=== PATIENT | male | born 1960 | race Caucasian/White ===

== ENCOUNTER 2018-06-29 02:05 | Emergency (ER) | payer OTHER ==
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
--- NOTE | 2018-06-29 02:55 | PDOC ---
History of Present Illness - General Chief Complaint: Psychiatric Stated Complaint: ANXIETY Time Seen by Provider: 06/29/18 02:31 - History of Present Illness Initial Comments: 06/29/18 02:54 57 yo M with h/o HTN who p/w grief reaction. Patient reports ongoing nervousness , sadness, difficulty sleeping, guilt, difficulty concentrating, rapid heart rate, and rapid heart rate. Symptom onset with social stressors. Triggers include conversation with coworkers, family about his 's recent . Denies SI. HI, self harm or injurious behavior, hallucinations. Patient recently presented to PMD Dr. Henderson who prescribed Sertraline, which patient has not yet taken. States that he does not want chronic management, but acute medication for periods of symptoms. 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 Patient denies VELÁSQUEZ, vision change, hearing loss, palpitations, N/V, F,C, CP, SOB , urinary complaints, abdominal pain, hematuria, BPR, diarrhea, constipation, lightheadedness, weakness, sensory changes. PMHx: as noted above ROS: as noted SHx: Denies Etoh, IVDA Allergies: NKDA Past History - Past Medical History Allergies/Adverse Reactions: Allergies Allergy/AdvReac Type Severity Reaction Status Date / Time No Known Allergies Allergy Verified 06/29/18 02:56 Home Medications: Ambulatory Orders Losartan 50Mg/Hctz 12.5MG [Hyzaar -] 1 tab PO DAILY 11/14/12 [place]-3 Acid Ethyl Esters [Lovaza -] 1 cap PO DAILY 08/24/13 Alprazolam [Xanax] 0.5 mg PO HS #7 tablet MDD 1 06/29/18 Alprazolam [Xanax] 0.5 mg PO PRN PRN #7 tablet MDD 1 tab 06/29/18 HTN: Yes Hypercholesterolemia: Yes - Suicide/Smoking/Psychosocial Hx Smoking Status: No Smoking History: Current some day smoker Number of Cigarettes Smoked Daily: 0 Cigars Per Day: 1 Hx Alcohol Use: No Substance Use Type: None Review of Systems - Review of Systems Comments:: 06/29/18 02:55 GENERAL/CONSTITUTIONAL: No fever or chills. No weakness. HEAD, EYES, EARS, NOSE AND THROAT: No change in vision. No ear pain or discharge. No sore throat. CARDIOVASCULAR: No chest pain or shortness of breath RESPIRATORY: No cough, wheezing, or hemoptysis. GASTROINTESTINAL: No nausea, vomiting, diarrhea or constipation. GENITOURINARY: No dysuria, frequency, or change in urination. MUSCULOSKELETAL: No joint or muscle swelling or pain. No neck or back pain. SKIN: No rash NEUROLOGIC: No headache, vertigo, loss of consciousness, or change in strength/ sensation. ENDOCRINE: No increased thirst. No abnormal weight change HEMATOLOGIC/LYMPHATIC: No anemia, easy bleeding, or history of blood clots. ALLERGIC/IMMUNOLOGIC: No hives or skin allergy. *Physical Exam - Physical Exam Comments: 06/29/18 02:55 GENERAL: Awake, alert, and fully oriented, in no acute distress HEAD: No signs of trauma, normocephalic, atraumatic EYES: PERRLA, EOMI, sclera anicteric, conjunctiva clear ENT: Auricles normal inspection, hearing grossly normal, nares patent, oropharynx clear without exudates. Moist mucosa NECK: Normal ROM, supple, no lymphadenopathy, JVD, or masses LUNGS: No distress, speaks full sentences, clear to auscultation bilaterally HEART: Regular rate and rhythm, normal S1 and S2, no murmurs, rubs or gallops, peripheral pulses normal and equal bilaterally. EXTREMITIES : Normal inspection, Normal range of motion, no edema. No clubbing or cyanosis. NEUROLOGICAL: Cranial nerves II through XII grossly intact. Normal speech, normal gait, no focal sensorimotor deficits PSYCHIATRY: Patient engaged in conversation with appropriate hygiene, eye contact. Affect appropriate and congruent with mood. SKIN: Warm, Dry, normal turgor, no rashes or lesions noted Medical Decision Making - Medical Decision Making 06/29/18 03:31 57 yo M with h/o HTN who p/w grief reaction. Endorses nervousness, sadness, difficulty sleeping, guilt, rapid heart rate. Vitals wnl, AF, A&Ox3. Denies SI, HI, self harm, hallucinations, elicit drug or alcohol use. Physical exam unremarkable. Advised to f/u with psych. Patient not suicidal risk, and currently no evidence of self harm. Will observe, reassess. ED Course: Patient continues to deny SI, HI. Xanax sent to pharmacy Discussed Xanax use with patient. 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 *DC/Admit/Observation/Transfer Diagnosis at time of Disposition: Brief or acute posttraumatic stress disorder - Discharge Dispostion Disposition: HOME Condition at time of disposition: Stable Decision to Admit order: No - Prescriptions Prescriptions: Alprazolam [Xanax] 0.5 mg PO PRN PRN #7 tablet MDD 1 tab PRN Reason: Insomnia Alprazolam [Xanax] 0.5 mg PO HS #7 tablet MDD 1 - Referrals Referrals: Leroy Bah MD [Primary Care Provider] - - Patient Instructions Printed Discharge Instructions: DI for Insomnia Additional Instructions: Please return to the emergency department with any new or worsening symptoms or concerns. Please follow up with your primary care physician within 72 hours. Please return to the emergency department. Please refrain from taking Xanax while operating heavy machinery. Take xanax as prescribed at night. Return to emergency department if you experience any suicidal ideations, homicidal thoughts, hallucinations. - Post Discharge Activity - Attestations Physician Attestion: 06/29/18 02:56 I attest to the information provided in this note.
[2018-06-29 02:56] VITALS: TEMP 99.3; BMI 31.8
[2018-06-29 03:51] VITALS: BP 146/78; PULSE 90
== END 2018-06-29 03:50 | disposition home or self-care (01) ==
LOC: JER 02:05
DX: F43.10 Post-traumatic stress disorder, unspecified (principal); I10 Essential (primary) hypertension
CPT/HCPCS: 99282-25

== ENCOUNTER 2019-07-09 12:41 | Emergency (ER) | payer OTHER ==
[2019-07-09 13:09] VITALS: BP 130/94; PULSE 94; TEMP 97.9; BMI 32.8
--- NOTE | 2019-07-09 14:03 | PDOC ---
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 Pain started about 1 week ago and is non radiating but is worsening. He also states increased swelling at focal site with erythema and warmth. He denies any wound or drainage and no trauma. He wears a prosthesis that occasionally causes discomfort but denies any abrasions. He called his PCP and was prescribed clinda 300mg TID 2 days ago which he has been taking, but says there has been no improvement. He denies fever, chills, cehst pain, SOB, abd pain, n/v, syncope. Of note, he reports skin irritation to area for the past 2 months prior to onset of current symptoms due to prosthetic which improved on its own; during that time he denied any increased swelling, drainage, fevers. PMHx: as noted above ROS: as noted SHx: occasional cigar use; no alcohol use; no rec drugs Allergies: NKDA ROS: GENERAL/CONSTITUTIONAL: No fever or chills. No weakness. HEAD, EYES, EARS, NOSE AND THROAT: No change in vision. No ear pain or discharge. No sore throat. CARDIOVASCULAR: No chest pain or shortness of breath RESPIRATORY: No cough, wheezing, or hemoptysis. GASTROINTESTINAL: No nausea, vomiting, diarrhea or constipation. GENITOURINARY: No dysuria, frequency, or change in urination. MUSCULOSKELETAL: +leg pain SKIN: +rash NEUROLOGIC: No headache, vertigo, loss of consciousness, or change in strength/ sensation. ENDOCRINE: No increased thirst. No abnormal weight change HEMATOLOGIC/LYMPHATIC: No anemia, easy bleeding, or history of blood clots. ALLERGIC/IMMUNOLOGIC: No hives or skin allergy. PE: GENERAL: Awake, alert, and fully oriented, no acute distress HEAD: No signs of trauma, normocephalic, atraumatic EYES: EOMI, sclera anicteric, conjunctiva clear ENT: Auricles normal inspection, hearing grossly normal, nares patent, oropharynx clear without exudates. Moist mucosa NECK: Normal ROM, no lymphadenopathy LUNGS: No increased work of breathing, symmetrical chest rise, clear to auscultation bilaterally, no wheezes, crackles or rhonchi HEART: Regular rate, regular rhythm, normal S1 and S2, no murmur, peripheral pulses 2+ and equal bilaterally. ABDOMEN: Soft, nondistended, nontender, normoactive bowel sounds. No guarding, no rebound. No masses. No CVAT MUSCULOSKELETAL: Right BKA with FROM NEUROLOGICAL: Cranial nerves II through XII grossly intact. Normal speech, normal gait, no focal sensorimotor deficits SKIN: Right LE inferomedial to knee with 3x3cm area of swelling, erythema, and ttp, nonindurated and no fluctuance, warmth to palpation <Rogelio Holman - Last Filed: 07/09/19 15:15> <Elmira Corral - Last Filed: 07/09/19 15:59> - General Chief Complaint: Redness To Affected Area Stated Complaint: RT FOOT WOUND Time Seen by Provider: 07/09/19 13:10 Past History - Past Medical History COPD: No HTN: Yes Hypercholesterolemia: Yes - Immunization History Immunization Up to Date: Yes - Psycho Social/Smoking Cessation Hx Smoking Status: No Smoking History: Unknown if ever smoked Have you smoked in the past 12 months: No Number of Cigarettes Smoked Daily: 0 Cigars Per Day: 1 Hx Alcohol Use: No Drug/Substance Use Hx: No Substance Use Type: None <Rogelio Holman - Last Filed: 07/09/19 15:15> <Elmira Corral - Last Filed: 07/09/19 15:59> - Past Medical History Allergies/Adverse Reactions: Allergies Allergy/AdvReac Type Severity Reaction Status Date / Time No Known Allergies Allergy Verified 07/09/19 12:58 Home Medications: Ambulatory Orders Quinapril HCl [Accupril] 10 mg PO DAILY 07/09/19 *Physical Exam - Vital Signs Last Vital Signs Temp Pulse Resp BP Pulse Ox 97.9 F 94 H 18 130/94 97 07/09/19 13:01 07/09/19 13:01 07/09/19 13:01 07/09/19 13:01 07/09/19 13:01 <Rogelio Holman - Last Filed: 07/09/19 15:15> - Vital Signs Last Vital Signs Temp Pulse Resp BP Pulse Ox 97.9 F 94 H 18 130/94 97 07/09/19 13:01 07/09/19 13:01 07/09/19 13:01 07/09/19 13:01 07/09/19 13:01 <Elmira Corral - Last Filed: 07/09/19 15:59> ED Treatment Course - LABORATORY CBC & Chemistry Diagram: 07/09/19 14:00 07/09/19 14:00 <Rogelio Holman - Last Filed: 07/09/19 15:15> - LABORATORY CBC & Chemistry Diagram: 07/09/19 14:00 07/09/19 14:00 - ADDITIONAL ORDERS Additional order review: Laboratory Results 07/09/19 14:00 Sodium 140 Potassium 4.4 Chloride 107 Carbon Dioxide 25 Anion Gap 7 L BUN 24.5 H Creatinine 1.1 Est GFR (CKD-EPI)AfAm 84.71 Est GFR (CKD-EPI)NonAf 73.09 Random Glucose 130 H Calcium 9.6 Total Bilirubin 0.8 AST 28 ALT 43 Alkaline Phosphatase 93 C-Reactive Protein Cancelled Total Protein 7.6 Albumin 4.2 07/09/19 14:00 RBC 5.74 H MCV 89.7 MCHC 34.6 RDW 13.8 MPV 9.6 Neutrophils % 70.6 D Lymphocytes % 14.1 D Monocytes % 9.6 Eosinophils % 5.0 H Basophils % 0.7 - Medications Given in the ED: ED Medications Discontinued Medications Generic Name Dose Route Start Last Admin Trade Name Freq PRN Reason Stop Dose Admin Dalbavancin 1,500 mg/ Dextrose 500 mls @ 1,000 mls/hr 07/09/19 14:17 14:27 IVPB 07/09/19 14:46 1,000 mls/hr ONCE ONE Administration <Elmira Corral - Last Filed: 07/09/19 15:59> Medical Decision Making - Medical Decision Making 07/09/19 14:03 58 y/o M with hx of HTN and 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 VSS, AF. PE notable for Right LE inferomedial to knee with 3x3cm area of swelling, erythema , and ttp, nonindurated and no fluctuance, warmth to palpation. Likely cellulitis. Will perform bedisde US to r/u abscess. Failed outpatient therapy, will likely need admission for iv abx -cbc, cmp, esr, crp -iv dalvance -bedside US: edematous subQ tissue with cobblestone appearance and small fluid pocket without discernible capsule; not I&D candidate 07/09/19 15:16 labs wnl discussed with patient plan with give one time dose of dalvance and DC home with wound re-check in ER in 2- 3 days with strict return pcxns to present earlier if complications arise patient comfortable with DC; all questions answered <Rogelio Holman - Last Filed: 07/09/19 15:15> Discharge - Discharge Information Problems reviewed: Yes <Rogelio Holman - Last Filed: 07/09/19 15:15> - Admission No <ShaynaElmiraterrance Chaneyangelica - Last Filed: 07/09/19 15:59> - Discharge Information Clinical Impression/Diagnosis: Cellulitis Qualifiers: Site of cellulitis: extremity Site of cellulitis of extremity: lower extremity Laterality: right Qualified Code(s): L03.115 - Cellulitis of right lower limb Condition: Stable Disposition: HOME - Follow up/Referral Referrals: Leroy Bah MD [Primary Care Provider] - - Patient Discharge Instructions Patient Printed Discharge Instructions: DI for Cellulitis -- Adult Additional Instructions: Additional Instructions: Please return to the emergency department with any new or worsening symptoms or concerns including fever, worsening redness, worsening pain, difficulty moving knee, pus or other drainage. you received IV Dalvance here x 1 dose for infection coverage also monitor for spread of infection in the demarcation line we made Please follow up in the ER in 2-3 days for wound recheck to ensure antibiotic efficacy. Please followup with you PCP Dr Bah in 3-5 days following wound recheck in the ER You may take motrin and tylenol for pain control - Post Discharge Activity Work/Back to School Note: Back to Work
[2019-07-09] MEDS ORDERED: DALBAVANCIN HCL 1,500 MG in DEXTROSE 5%-WATER - 500 ML IVPB ONE (14:17)
[2019-07-09 14:18] LABS: BASO % 0.7 % (0-2.0); HEMATOCRIT 51.5 % (35.4-49); HEMOGLOBIN 17.8 GM/dL (11.7-16.9); LYMPH % 14.1 % (8-40); MCHC 34.6 g/dl (32.0-35.9); MEAN CELL VOLUME 89.7 fl (80-96); MEAN PLT VOLUME 9.6 fl (7.5-11.1); MONO % 9.6 % (3.8-10.2); NEUT % 70.6 % (42.8-82.8); PLATELET COUNT 210 K/MM3 (134-434); RBC 5.74 M/mm3 (4.00-5.60); RDW 13.8 % (11.9-15.9); WHITE BLOOD COUNT 9.8 K/mm3 (4.0-10.0)
[2019-07-09] MEDS ORDERED: DALBAVANCIN HCL 500 MG VIAL (RESTRICTED TO ID ONLY) IVPB ONE ×2 (14:19→14:21)
[2019-07-09 14:55] LABS: ALBUMIN 4.2 g/dl (3.4-5.0); BILIRUBIN,TOTAL 0.8 mg/dL (0.2-1); BLOOD UREA NITROGEN 24.5 mg/dL (7-18); CALCIUM 9.6 mg/dL (8.5-10.1); CREATININE 1.1 mg/dL (0.55-1.3); POTASSIUM 4.4 mmol/L (3.5-5.1); TOT PROT 7.6 g/dl (6.4-8.2)
--- NOTE | 2019-07-09 14:56 | PDOC ---
Attending Attestation - Resident Resident Name: Rogelio Holman - ED Attending Attestation I have performed the following: I have examined & evaluated the patient, The case was reviewed & discussed with the resident, I agree w/resident's findings & plan - HPI HPI: 07/09/19 14:50 58 yo M with h/o HTN, rt BKA with prosthesis presenting with RLE redness/pain/ swelling to the upper caal x 1 week. he usually wears a prosthesis Clindamycin 300mg TID x 2 days - called in by his PMD Dr Bah, but did not see his pmd, called in his medication. he has been taking without improvement. X 1 week of RLE redness, swelling and tenderness, warmth He denies any wound or drainage and no trauma. He wears a prosthesis that occasionally causes discomfort but denies any abrasions. He denies fever, chills, cehst pain, SOB, abd pain, n/v, syncope. Of note, he reports skin irritation to area for the past 2 months prior to onset of current symptoms due to prosthetic which improved on its own; during that time he denied any increased swelling, drainage, fevers. 07/09/19 14:51 - Physicial Exam PE: 07/09/19 14:50 Agree with the resident's HPI and PE as documented in the electronic medical record. NAD, well appearing, EOMI, PERRL, nl conjunctiva, anicteric; neck supple. lungs clear, RRR, abdomen soft nontender. No rebound, no guarding. Back nontender. POLANCO x4, no focal neuro deficits. No peripheral edema. normal color for ethnicity , WWP. right upper caal anteriorly with 5x5cm circumscribed area of erythema, tenderness, and swelling. no knee tenderness, no swelling ROM intact to flexion and extension. - Medical Decision Making 07/09/19 14:54 Vital Signs Temp Pulse Resp BP Pulse Ox 97.9 F 94 H 18 130/94 97 07/09/19 13:01 07/09/19 13:01 07/09/19 13:01 07/09/19 13:01 07/09/19 13:01 vs reviewed, wnl. no fever nontoxic appearing no h/o renal/hepatic disease, no h/o chronic wounds or diabetes no e/o complications ROM intact, so doubt septic arthritis or joint involvement. soft tissue pocus done, with small area of fluid collection with irregular borders, no drainable abscess, some cobblestoning correlating with cellulitis pt is candidate for Dalvance 1500mg x1 dose here, with 2 week half life and coverage of mrsa/mssa and strep species pt amenable told to return in 2 days for wound recheck, return precautions for worsening infection past the area of demarcation, f/c, purulence, rom limitations. labs and lytes wnl, reassuring. normal lfts/Cr function, no leukcotysis he is well appearing, no septic features Pt to be discharged in stable condition. Patient and family made aware of clinical impression, treatment recommendations and disposition plan, return precautions discussed (including but not limited to new or persistent/worsening symptoms, pain, fevers, or signs of infection, chest pain, respiratory distress , inability to tolerate oral intake, dehydration, syncope, or neurologic changes ). Follow up with PMD as recommended, follow up information provided, take medications as instructed for duration of time. continue with supportive care, avoid triggers and precipitants. All questions answered to patient's satisfaction and expressed understanding and comfort with this. At the time of discharge, the patient is alert, clinically improved, tolerating po and verbalizes understanding of instructions, satisfied with the care received and felt comfortable with the plan. Patient does not suffer from an acute life- threatening medical condition at this time and is safe for outpatient follow- up. 07/09/19 15:58
== END 2019-07-09 15:40 | disposition home or self-care (01) ==
LOC: JER 12:41
PROC: 3E03329 Introduction of Other Anti-infective into Peripheral Vein, Percutaneous Approach (ICD-10-PCS; principal; 2019-07-09)
PROC: BH48ZZZ Ultrasonography of Lower Extremity (ICD-10-PCS; 2019-07-09)
DX: L03.115 Cellulitis of right lower limb (principal); Z89.611 Acquired absence of right leg above knee; I10 Essential (primary) hypertension; E78.00 Pure hypercholesterolemia, unspecified
CPT/HCPCS: 36415; 80053; 85025; 99283-25; J0875

== ENCOUNTER 2019-07-12 13:00 | Emergency (ER) | payer OTHER ==
--- NOTE | 2019-07-12 13:23 | PDOC ---
Rapid Medical Evaluation Time Seen by Provider: 07/12/19 13:06 Medical Evaluation: Allergies Allergy/AdvReac Type Severity Reaction Status Date / Time No Known Allergies Allergy Verified 07/12/19 13:20 07/12/19 13:23 CC: revisit for right stump redness. Treated with Dalvance. PE: erythema present to right stump. Orders: labs Patient will proceed to the ED for further evaluation. 07/12/19 13:24 Discharge Disposition - Diagnosis Cellulitis - Referrals - Patient Instructions - Post Discharge Activity
[2019-07-12 13:38] VITALS: BP 128/88; PULSE 78; TEMP 98.5; BMI 32.8
--- NOTE | 2019-07-12 14:58 | PDOC ---
*Physical Exam - Vital Signs Last Vital Signs Temp Pulse Resp BP Pulse Ox 98.5 F 78 18 128/88 98 07/12/19 13:21 07/12/19 13:21 07/12/19 13:21 07/12/19 13:21 07/12/19 13:21 - Physical Exam 07/12/19 14:58 I the patient was examined by [LUPE Pop] under my direct supervision. I personally evaluated the patient. I concur with the above findings and the plan of care. ED Treatment Course - LABORATORY CBC & Chemistry Diagram: 07/12/19 14:25 07/12/19 14:25 Discharge - Discharge Information Problems reviewed: Yes Clinical Impression/Diagnosis: History of incision and drainage Cellulitis Qualifiers: Site of cellulitis: extremity Site of cellulitis of extremity: lower extremity Laterality: right Qualified Code(s): L03.115 - Cellulitis of right lower limb Condition: Stable Disposition: HOME - Follow up/Referral Referrals: Leroy Bah MD [Primary Care Provider] - - Patient Discharge Instructions Additional Instructions: Keep area clean and dry Ibuprofen 600 mg as needed for pain Return to ED in 2 days for wound check, return sooner if fever, chills, increasing pain and swelling - Post Discharge Activity
[2019-07-12 15:06] LABS: BASO % 0.7 % (0-2.0); EOS % 7.4 % (0-4.5); HEMATOCRIT 49.5 % (35.4-49); HEMOGLOBIN 16.7 GM/dL (11.7-16.9); MCH 30.4 pg (25.7-33.7); MCHC 33.8 g/dl (32.0-35.9); MEAN PLT VOLUME 9.5 fl (7.5-11.1); NEUT % 61.9 % (42.8-82.8); PLATELET COUNT 212 K/MM3 (134-434); RDW 13.5 % (11.9-15.9); WHITE BLOOD COUNT 7.1 K/mm3 (4.0-10.0)
--- NOTE | 2019-07-12 15:17 | PDOC ---
History of Present Illness - General History Source: Patient Exam Limitations: No Limitations - History of Present Illness Initial Comments: 07/12/19 15:14 58-year-old male history of hypertension, right BKA seen at this hospital July 09, treated for right lower extremity cellulitis. Received 1 dose of Dalvance 1500 mg IV, area was demarcated and patient instructed to return to ED for wound check. Prior to July 09 visit patient had taken 2 days of clindamycin scribed by primary care doctor. She reports erythema and swelling to area has worsened, denies fever, chills, nausea, vomiting, chest pain, shortness of breath, trauma or any other complaints. ROS: GENERAL/CONSTITUTIONAL: No fever, chills, weakness, dizziness HEAD, EYES, EARS, NOSE AND THROAT: No changes in vision, No ear pain or discharge, No sore throat CARDIOVASCULAR: No chest pain RESPIRATORY: No shortness of breath or cough GASTROINTESTINAL: No pain, nausea, vomiting, diarrhea or constipation GENITOURINARY: No dysuria MUSCULOSKELETAL: No neck or back pain SKIN: wound check above RLE stump, No rash NEUROLOGIC: No headache, vertigo, loss of consciousness, or loss of sensation PE: GENERAL: well-appearing, NAD HEAD: NCAT EYES: Pupils equal, round and reactive to light, sclera anicteric, conjunctiva clear ENT: pharynx: no erythema, no exudate, uvula midline NECK: supple CHEST: nontender RESP: clear, no w/r/r CARDIO: rrr, no m/g/r ABD: +BS, soft, nontender, non distended BACK: no midline spinal ttp, no CVAT EXTREMITIES: Normal range of motion to right lower extremity stump NEUROLOGICAL: Normal speech, normal gait SKIN: Approximately 5 cm x 5 cm erythematous area with tenderness to palpation and swelling, minimal fluctuance noted, no active drainage Is this a multiple visit Asthma Patient?: No <Tami Pop - Last Filed: 07/12/19 15:40> <Elmira Corral - Last Filed: 07/14/19 08:49> - General Chief Complaint: Wound Stated Complaint: RE VISIT Time Seen by Provider: 07/12/19 13:06 Past History - Past Medical History COPD: No HTN: Yes Hypercholesterolemia: Yes - Immunization History Immunization Up to Date: Yes - Psycho Social/Smoking Cessation Hx Smoking Status: No Smoking History: Current some day smoker Have you smoked in the past 12 months: No Number of Cigarettes Smoked Daily: 0 Cigars Per Day: 1 Information on smoking cessation initiated: Yes Hx Alcohol Use: No Drug/Substance Use Hx: No Substance Use Type: None <Tami Pop - Last Filed: 07/12/19 15:40> <Elmira Corral - Last Filed: 07/14/19 08:49> - Past Medical History Allergies/Adverse Reactions: Allergies Allergy/AdvReac Type Severity Reaction Status Date / Time No Known Allergies Allergy Verified 07/12/19 13:20 Home Medications: Ambulatory Orders Quinapril HCl [Accupril] 10 mg PO DAILY 07/09/19 *Physical Exam - Vital Signs Last Vital Signs Temp Pulse Resp BP Pulse Ox 98.5 F 78 18 128/88 98 07/12/19 13:21 07/12/19 13:21 07/12/19 13:21 07/12/19 13:21 07/12/19 13:21 <Tami Pop - Last Filed: 07/12/19 15:40> - Vital Signs Last Vital Signs Temp Pulse Resp BP Pulse Ox 98.5 F 78 18 128/88 98 07/12/19 13:21 07/12/19 13:21 07/12/19 13:21 07/12/19 13:21 07/12/19 13:21 <Elmira Corral - Last Filed: 07/14/19 08:49> Procedures - Incision and Drainage I&D Site: Right: Leg (RLE stump) Betadine cleansed: Yes Anesthesia: 1% Lidocaine Volume(ml): 2 Blade Size: 11 Attempts: 1 Iodinated Packin/2 in (Approximately 5 cc of serosanguineous drainage expressed) <Tami Pop - Last Filed: 07/12/19 15:40> ED Treatment Course - LABORATORY CBC & Chemistry Diagram: 07/12/19 14:25 07/12/19 14:25 <Tami Pop - Last Filed: 07/12/19 15:40> - LABORATORY CBC & Chemistry Diagram: 07/12/19 14:25 07/12/19 14:25 - ADDITIONAL ORDERS Additional order review: 07/12/19 14:25 RBC 5.50 MCV 90.0 MCHC 33.8 RDW 13.5 MPV 9.5 Neutrophils % 61.9 Lymphocytes % 18.0 D Monocytes % 12.0 H Eosinophils % 7.4 H Basophils % 0.7 <Elmira Corral - Last Filed: 07/14/19 08:49> Medical Decision Making - Medical Decision Making 07/12/19 15:41 58-year-old male with history of hypertension and right BKA treated for cellulitis to right lower extremity stump on July 09. She reports erythema has worsened however denies fever, chills, pain, nausea or any other symptom. Small area of fluctuance, I&D performed, packing and sterile dressing applied Patient received Dalvance 1500 mg IV on July 09 therefore no p.o. antibiotics indicated today Advised patient to return to ED in 2 days for wound check <Tami Pop - Last Filed: 07/12/19 15:40> - Medical Decision Making The patient was seen and evaluated in conjunction with midlevel provider under my direct supervision, ancillary studies were reviewed. I agree with the plan as outlined with LUPE Pop. HPI, workup/dispo as outlined. VS reviewed, wnl. I also evaluated the pt. he was seen several days ago for similar sx, given dose of Dalvance now with more erythema and +fluctuance over the RLE prox caal, no knee involvement with FROM I&d performed with purulence expelled, see procedure note defer further abx, as pt received dalvance and abscess drained, packing placed 2 day wound check up anticipate discharge, pcp followup, return precautions 07/14/19 08:47 <Elmira Corral - Last Filed: 07/14/19 08:49> Discharge - Discharge Information Problems reviewed: Yes - Admission No <Tami Pop - Last Filed: 07/12/19 15:40> <Elmira Corral - Last Filed: 07/14/19 08:49> - Discharge Information Clinical Impression/Diagnosis: History of incision and drainage Cellulitis Qualifiers: Site of cellulitis: extremity Site of cellulitis of extremity: lower extremity Laterality: right Qualified Code(s): L03.115 - Cellulitis of right lower limb Condition: Stable Disposition: HOME - Follow up/Referral Referrals: Leroy Bah MD [Primary Care Provider] - - Patient Discharge Instructions Additional Instructions: Keep area clean and dry Ibuprofen 600 mg as needed for pain Return to ED in 2 days for wound check, return sooner if fever, chills, increasing pain and swelling - Post Discharge Activity
[2019-07-12 15:27] LABS: ALBUMIN 3.9 g/dl (3.4-5.0); BILIRUBIN,TOTAL 0.4 mg/dL (0.2-1); BLOOD UREA NITROGEN 16.4 mg/dL (7-18); CALCIUM 8.8 mg/dL (8.5-10.1); CREATININE 0.9 mg/dL (0.55-1.3); POTASSIUM 4.3 mmol/L (3.5-5.1); TOT PROT 6.7 g/dl (6.4-8.2)
== END 2019-07-12 15:53 | disposition home or self-care (01) ==
LOC: JER 13:00
DX: Z48.01 Encounter for change or removal of surgical wound dressing (principal); F17.210 Nicotine dependence, cigarettes, uncomplicated; I10 Essential (primary) hypertension; E78.00 Pure hypercholesterolemia, unspecified
CPT/HCPCS: 36415; 80053; 85025; 99281-25

== ENCOUNTER 2021-07-21 16:40 | Emergency (ER) | payer OTHER ==
[2021-07-21] MEDS ORDERED: KETOROLAC TROMETHAMINE 30 MG/1 ML VIAL IM ONE (18:18)
[2021-07-21] MEDS ORDERED: predniSONE 20 MG TABLET (UD) PO ONE (18:18)
[2021-07-21] MEDS ORDERED: ACETAMINOPHEN 325 MG TABLET (FP) PO ONE (18:19)
[2021-07-21] MEDS ORDERED: LORATADINE 10 MG TABLET PO ONE (18:20)
[2021-07-21] MEDS ORDERED: AMOX TR/POT CLAV 875MG/125MG TABLETS (FP) PO ONE (18:20)
[2021-07-21] MEDS ORDERED: KETOROLAC TROMETHAMINE 30 MG/1 ML VIAL ONE (18:27)
[2021-07-21] MEDS ORDERED: LORATADINE 10 MG TABLET ONE (18:28)
[2021-07-21] MEDS ORDERED: AMOX TR/POT CLAV 875MG/125MG TABLETS (FP) ONE (18:28)
[2021-07-21] MEDS ORDERED: ACETAMINOPHEN 325 MG TABLET (FP) ONE (18:28)
[2021-07-21] MEDS ORDERED: predniSONE 20 MG TABLET (UD) ONE (18:28)
[2021-07-21 18:51] VITALS: BP 142/82; PULSE 84; TEMP 98.6; BMI 29.0
== END 2021-07-21 19:01 | disposition home or self-care (01) ==
LOC: FER 16:40
PROC: 3E0233Z Introduction of Anti-inflammatory into Muscle, Percutaneous Approach (ICD-10-PCS; principal; 2021-07-21)
DX: R09.81 Nasal congestion (principal)
CPT/HCPCS: 99284-25

== ENCOUNTER 2022-12-11 06:00 | Day surgery (SDC) | payer OTHER ==
[2022-12-08 12:17] VITALS: BMI 34.6
[2022-12-11 09:18] VITALS: TEMP 97.8
[2022-12-11 11:17] VITALS: BP 140/66; PULSE 56; RESP 20
== END 2022-12-11 11:50 | disposition home or self-care (01) ==
LOC: JASU-ENDO 06:00
PROVIDERS: ATTEND Internal Medicine Gastroenterology
PROC: 0DB98ZX Excision of Duodenum, Via Natural or Artificial Opening Endoscopic, Diagnostic (ICD-10-PCS; 2022-12-11)
PROC: 0DB68ZX Excision of Stomach, Via Natural or Artificial Opening Endoscopic, Diagnostic (ICD-10-PCS; 2022-12-11)
PROC: 0DBN8ZX Excision of Sigmoid Colon, Via Natural or Artificial Opening Endoscopic, Diagnostic (ICD-10-PCS; principal; 2022-12-11 10:00)
DX: Z12.11 Encounter for screening for malignant neoplasm of colon (principal); D12.5 Benign neoplasm of sigmoid colon; K64.8 Other hemorrhoids; K21.9 Gastro-esophageal reflux disease without esophagitis; K44.9 Diaphragmatic hernia without obstruction or gangrene; Z86.010 Personal history of colon polyps
CPT/HCPCS: 88305-TC; 88342-TC

== ENCOUNTER 2024-01-26 21:02 | Emergency (ER) | payer OTHER ==
[2024-01-26 21:14] VITALS: BMI 35.2
[2024-01-26 22:12] LABS: BASO % 0.6 % (0-2.0); EOS % 2.6 % (0-4.5); HEMATOCRIT 49.8 % (35.4-49); HEMOGLOBIN 17.4 GM/dL (11.7-16.9); LYMPH % 13.2 % (8-40); MEAN CELL VOLUME 91.4 fl (80-96); MEAN PLT VOLUME 8.8 fl (7.5-11.1); MONO % 10.5 % (3.8-10.2); NEUT % 73.1 % (42.8-82.8); PLATELET COUNT 198 10^3/uL (134-434); RBC 5.44 M/mm3 (4.00-5.60); WHITE BLOOD COUNT 6.9 K/mm3 (4.0-10.0)
[2024-01-26] MEDS ORDERED: ACETAMINOPHEN INJECTION 100 ML IVPB ONE (22:22)
[2024-01-26] MEDS ORDERED: FAMOTIDINE 20 MG/50 ML IVPB 20 MG/50 ML MG IVPB ONE (22:23)
[2024-01-26] MEDS ORDERED: MAG HYDROX/AL HYDROX/SIMETH 30 ML UNIT-DOSE CUP ONE (22:23)
[2024-01-26 22:32] LABS: POTASSIUM 3.7 mmol/L (3.5-5.1)
[2024-01-26 22:34] LABS: CALCIUM 9.5 mg/dL (8.5-10.1)
[2024-01-26] MEDS: LACTATED RINGERS SOLUTION 1000 ML INFUS.BAG IV ONE (22:34)
[2024-01-26] MEDS: ACETAMINOPHEN 1000 MG/100 ML BAG IVPB ONE (22:34)
[2024-01-26] MEDS: MAG HYDROX/AL HYDROX/SIMETH 30 ML UNIT-DOSE CUP PO ONE (22:34)
[2024-01-26] MEDS: FAMOTIDINE 20 MG/50 ML IVPB 20 MG/50 ML MG IVPB ONE (22:34)
[2024-01-26 22:35] LABS: ALBUMIN 4.1 g/dl (3.4-5.0); BLOOD UREA NITROGEN 23.7 mg/dL (7-18); MAGNESIUM 2.2 mg/dL (1.8-2.4)
[2024-01-26 22:38] LABS: CREATININE 1.2 mg/dL (0.55-1.3)
[2024-01-26 22:39] LABS: BILIRUBIN,TOTAL 1.4 mg/dL (0.2-1)
[2024-01-27 01:09] VITALS: BP 155/76; PULSE 74; RESP 17; TEMP 98.2
== END 2024-01-27 02:01 | disposition left against medical advice (07) ==
LOC: JER 21:02
PROC: 3E033GC Introduction of Other Therapeutic Substance into Peripheral Vein, Percutaneous Approach (ICD-10-PCS; principal; 2024-01-26)
PROC: 3E033NZ Introduction of Analgesics, Hypnotics, Sedatives into Peripheral Vein, Percutaneous Approach (ICD-10-PCS; 2024-01-26)
DX: R10.11 Right upper quadrant pain (principal); R10.12 Left upper quadrant pain; R10.13 Epigastric pain; R14.0 Abdominal distension (gaseous)
CPT/HCPCS: 36415; 74177-TC; 76705-TC; 80053; 83690; 83735; 84484; 85025; 93005; 93010; 99285-25; J0131